=== PATIENT | female | born 1990 | race Hispanic/Latino ===

== ENCOUNTER 2018-07-12 14:46 | Emergency (ER) | payer MEDICAID ==
[2018-07-12 14:57] VITALS: O2SAT 98
[2018-07-12] MEDS ORDERED: Iohexol 240 (50 ml) PO STA (15:21)
[2018-07-12] MEDS ORDERED: Lactated Ringer's 1,000 ML IV STA (15:22)
--- NOTE | 2018-07-12 16:01 | ED PDOC ---
HPI: Abdomen Time Seen by Provider: 07/12/18 15:04 Chief Complaint (Nursing): Abdominal Pain Chief Complaint (Provider): Abdominal pain History Per: Patient History/Exam Limitations: no limitations Onset/Duration Of Symptoms: Days (x4) Current Symptoms Are (Timing): Still Present Location Of Pain/Discomfort: Other (Left sided) Associated Symptoms: Chills, Nausea. denies: Fever, Vomiting, Diarrhea, Urinary Symptoms Additional Complaint(s): 28 y/o female, with history of undiagnosed connective tissue disorder/autoimmune disease, presents to the ER reporting left sided abdominal pain since Saturday radiating to the back. Pain was initially associated with diarrhea when she ate but patient has not eaten since so diarrhea has stopped. Patient states she had an episode of blood tinged diarrhea that patient reports is due to hemorrhoids. She reports nausea and chills and denies vomiting, fever, urina ry complaints, or vaginal complaints. She has not taken anything for pain. Patient is from [place] and arrived here yesterday. She saw her doctor on and had bloodwork done which found patient to be hypotensive. She was given IV fluids at that time. Labs were also taken and found to be normal. PMD: [facility] in [place], [place] Past Medical History Reviewed: Historical Data, Nursing Documentation, Vital Signs Vital Signs: Last Vital Signs Temp 98.1 F 07/12/18 14:54 Pulse 72 07/12/18 14:54 Resp 20 07/12/18 14:54 BP 135/64 07/12/18 14:54 Pulse Ox 98 07/12/18 14:54 Primary Care Provider: Isa Quintanilla - Medical History Other PMH: Hospitalized last year for sepsis from gastroenteritis - Surgical History Surgical History: No Surg Hx - Family History Family History: States: Other Other Family History: Sjogren's autoimmune disorder - Social History Current smoker - smoking cessation education provided: No Alcohol: Other (Rare) - Home Medications Home Medications: Ambulatory Orders Medication Instructions Recorded Omeprazole Magnesium [Prilosec Otc] 20 mg PO DAILY #14 tcp 07/12/18 Ondansetron ODT [Zofran ODT] 1 odt PO Q6 PRN #20 odt 07/12/18 Phenobarb/Hyoscy/Atropine/Scop 10 ml PO QID #240 ml 07/12/18 [ Elixir] - Allergies Allergies/Adverse Reactions: Allergies Allergy/AdvReac Type Severity Reaction Status Date / Time Penicillins Allergy SWELLING Verified 07/12/18 14:53 Review of Systems ROS Statement: Except As Marked, All Systems Reviewed And Found Negative Gastrointestinal: Positive for: Nausea, Abdominal Pain (left sided abdominal pain radiating to the back). Negative for: Vomiting, Diarrhea Genitourinary Female: Negative for: Dysuria, Hematuria, Vaginal Discharge, Vaginal Bleeding Physical Exam - Reviewed Nursing Documentation Reviewed: Yes Vital Signs Reviewed: Yes - Physical Exam Appears: Positive for: Non-toxic, In Acute Distress (Mild painful distress) Head Exam: Positive for: ATRAUMATIC, NORMOCEPHALIC Skin: Positive for: Warm, Dry Eye Exam: Positive for: EOMI, PERRL ENT: Negative for: Pharyngeal Erythema, Tonsillar Exudate Neck: Positive for: Painless ROM, Supple Cardiovascular/Chest: Positive for: Regular Rate, Rhythm. Negative for: Murmur Respiratory: Positive for: Normal Breath Sounds. Negative for: Respiratory Distress Gastrointestinal/Abdominal: Positive for: Soft, Tenderness (Left upper and left lower quadrant tenderness to palpation), Other ((-) Huitron's Sign, (-) McBurney's point tenderness). Negative for: Mass, Guarding, Rebound Back: Positive for: Normal Inspection. Negative for: L CVA Tenderness, R CVA Tenderness Extremity: Positive for: Normal ROM. Negative for: Deformity Lymphatic: Negative for: Adenopathy Neurological/Psych: Positive for: Awake, Alert. Negative for: Motor/Sensory Deficits - Laboratory Results Result Diagrams: 07/12/18 16:10 07/12/18 16:10 - ECG O2 Sat by Pulse Oximetry: 98 (RA) Pulse Ox Interpretation: Normal Medical Decision Making Medical Decision Making: Initial Impression: Abdominal pain Differential includes colitis, diverticulitis, gastroenteritis, dehydration, and electrolyte abnormality Initial Plan: --CT abd/pelvis --CMP --Urine drug screen --Lact acid stat --Lipase stat --Magnesium stat --Phosphorous stat --ED urine --ED urine dipstick --CBC --Bentyl 20mg PO --Lactated Ringers 1000mL IV --Iohexol 50mL PO --Pepcid 20mg IV --Toradol 15mL IV --Zofran 4mg IV --Blood culture stat --Stool culture stat --C diff toxin A B stat Labs unremarkable. Name: TOM STEPHENS Exam Date: July 12, 2018 7:06:55 PM EDT Modality Type: CT\SR Description: CT - ABDOMEN AND PELVIS Gender: F Laterality: Not applicable : 88 Referring Physician: Emergency Room direct number EXAM: CT Abdomen and Pelvis with IV contrast CLINICAL HISTORY: Left sided pain TECHNIQUE: Axial computed tomography images of the abdomen and pelvis with intravenous contrast. 615.83 mGy-cm CONTRAST: With; [id number] 95ML COMPARISON: None provided. FINDINGS: LUNG BASES: The lung bases appear clear. No pleural effusions are seen. LIVER: Unremarkable. GALLBLADDER AND BILE DUCTS: The gallbladder appears within normal limits. No radioopaque gallstones are seen. No biliary ductal dilatation is evident. PANCREAS: Unremarkable. SPLEEN: Unremarkable. ADRENAL GLANDS: Unremarkable. KIDNEYS, URETERS, AND BLADDER: The kidneys appear within normal limits. There is no hydronephrosis or hydroureter. No urinary calculi are seen. STOMACH AND BOWEL: Unremarkable appearance of the stomach and bowel. No evidence of bowel obst ruction. No evidence suggesting enteritis or colitis. APPENDIX: No evidence of acute appendicitis on CT examination. PERITONEUM: No free fluid. No free air. LYMPH NODES: No lymphadenopathy is evident. REPRODUCTIVE: Unremarkable as visualized. VASCULATURE: No evidence of abdominal aortic aneurysm. BONES: No aggressive appearing osseous lesion. No acute osseous pathology evident. IMPRESSION: No acute intra-abdominal or pelvic abnormality. Electronically signed on July 12, 2018 8:04:41 PM EDT by: Yvon Caldera M.D., Certified by [facility], Diagnostic Radiology On reevaluation pt reports she continues to have pain and it is unchanged. GI cocktail ordered. Offered observation stay in hospital for monitoring for undifferentiated abdomin al pain vs watchful waiting outpatient. Pt prefers to be discharged. Scribe Attestation: Documented by Rehan Hall acting as a scribe for Tanisha Kelsey MD. Provider Scribe Attestation: All medical record entries made by the Scribe were at my direction and personally dictated by me. I have reviewed the chart and agree that the record accurately reflects my personal performance of the history, physical exam, medical decision making, and the department course for this patient. I have also personally directed, reviewed, and agree with the discharge instructions and disposition. Disposition - Clinical Impression Clinical Impression: Abdominal pain - Disposition Referrals: [facility] [Outside] - 07/13/18 Disposition: Routine/Home Disposition Time: 21:00 Condition: STABLE Additional Instructions: FOLLOW UP WITH [employer] TOMORROW OR YOUR DOCTOR SATURDAY FOR REEVALUATION Prescriptions: Omeprazole Magnesium [Prilosec Otc] 20 mg PO DAILY #14 tcp Ondansetron ODT [Zofran ODT] 1 odt PO Q6 PRN #20 odt PRN Reason: Nausea/Vomiting Phenobarb/Hyoscy/Atropine/Scop [ Elixir] 10 ml PO QID #240 ml Instructions: Acute Abdomen (Belly Pain), Adult (DC) Forms: [employer] ([employer])
[2018-07-12] MEDS ORDERED: Iohexol 240 (50 ml) ONE (16:26)
[2018-07-12 16:38] LABS: BASO # 0.1 K/uL (0.0-0.2); BASO % 1.1 % (0.0-2.0); EOS # 0.1 K/uL (0.0-0.7); EOS % 2.2 % (0.0-4.0); HEMOGLOBIN 14.1 g/dL (12.0-16.0); LYMPH # 1.4 K/uL (1.0-4.3); LYMPH % 28.7 % (20.0-40.0); MEAN CELL VOLUME 94.1 fl (81.0-99.0); MEAN CORPUSCULAR HEMOGLOBIN 32.7 pg (27.0-31.0); MEAN CORPUSCULAR HGB CONC 34.7 g/dL (33.0-37.0); MEAN PLATELET VOLUME 8.7 fl (7.2-11.7); MONO # 0.4 K/uL (0.0-0.8); MONO % 7.6 % (0.0-10.0); NEUT % 60.4 % (50.0-75.0); NRBC % 0.1 % (0.0-0.0); RBC 4.31 Mil/uL (3.80-5.20); RED CELL DISTRIBUTION WIDTH 14.4 % (11.5-14.5)
[2018-07-12 16:42] LABS: ALB/GLOB RATIO 1.7 (1.0-2.1); ALBUMIN 4.5 g/dL (3.5-5.0); ALT/SGPT 28 U/L (9-52); AST/SGOT 26 U/L (14-36); BLOOD UREA NITROGEN 8 mg/dl (7-17); CALCIUM 9.1 mg/dL (8.4-10.2); GFR NON-AFRICAN AMERICAN > 60; LIPASE 322 U/L (23-300)
[2018-07-12] MEDS ORDERED: Sodium Chloride 0.9% 1,000 ML IV STA (17:01)
[2018-07-12 17:13] LABS: BARBITURATES, UR NEGATIVE (NEGATIVE); BENZODIAZEPINES, UR NEGATIVE (NEGATIVE); OPIATES, UR NEGATIVE (NEGATIVE); PHENCYCLIDINE, UR NEGATIVE (NEGATIVE)
[2018-07-12] MEDS ORDERED: Sodium Chloride 0.9% 50 ML IV ONE (18:58)
[2018-07-12] MEDS ORDERED: Iohexol 300 100 ML IJ ONE (18:58)
[2018-07-12] MEDS ORDERED: Atrop/Hyos/Scop/PhenoB Elixir PO STA (20:16)
[2018-07-12] MEDS ORDERED: Alum-Mag Hydrox-Simethicone Susp (30 mL) PO STA (20:16)
[2018-07-12] MEDS ORDERED: Alum-Mag Hydrox-Simethicone Susp (30 mL) ONE (20:22)
[2018-07-12 22:02] VITALS: BP 102/53; PULSE 70; RESP 18; TEMP 98.3
--- NOTE | 2018-07-13 17:23 | CT ---
Date of service: 07/12/2018 PROCEDURE: CT Abdomen and Pelvis with contrast HISTORY: abd pain LEFT sided COMPARISON: None. TECHNIQUE: Contrast dose: 95 mL Omnipaque 300 Radiation dose: Total exam DLP = 615.83 mGy-cm. This CT exam was performed using one or more of the following dose reduction techniques: Automated exposure control, adjustment of the mA and/or kV according to patient size, and/or use of iterative reconstruction technique. FINDINGS: LOWER THORAX: Unremarkable. LIVER: Unremarkable. No gross lesion or ductal dilatation. GALLBLADDER AND BILE DUCTS: Unremarkable. PANCREAS: Unremarkable. No gross lesion or ductal dilatation. SPLEEN: Unremarkable. ADRENALS: Unremarkable. No mass. KIDNEYS AND URETERS: Unremarkable. No hydronephrosis. No solid mass. VASCULATURE: Unremarkable. No aortic aneurysm. No aortic atherosclerotic calcification or mural plaque present. BOWEL: Unremarkable. No obstruction. No gross mural thickening. APPENDIX: Not identified. No secondary findings. PERITONEUM: Unremarkable. No free fluid. No free air. LYMPH NODES: Unremarkable. No enlarged lymph nodes. BLADDER: Unremarkable. REPRODUCTIVE: Normal uterus BONES: No acute fracture. OTHER FINDINGS: None. IMPRESSION: Unremarkable examination. The preliminary findings for this examination were reported by [facility] at 8:04 p.m. on 07/12/2018. There is concurrence of this report with the preliminary findings.
== END 2018-07-12 21:42 | disposition home or self-care (01) ==
LOC: H.ER 14:46
DX: R10.9 Unspecified abdominal pain (principal); Z88.0 Allergy status to penicillin
CPT/HCPCS: 74177; 80053; 80324; 80345; 80346; 80349; 80353; 80358; 80361; 81025; 83605; 83690; 83735; 83992; 84100; 85025; 87040; 96374; 96375; 99285; J1885; J2405; J7030; Q9966; Q9967